=== PATIENT | female | born 1995 | race Caucasian/White ===

== ENCOUNTER 2018-02-05 20:07 | Emergency (ER) | payer SELFPAY ==
[2018-02-05 20:56] LABS: Pregnancy Test - Urine (BHCG) POSITIVE (Negative)
[2018-02-05 20:57] LABS: Bilirubin Negative (Negative); Blood, Urine Negative (Negative); Clarity Cloudy (Clear); Glucose, Urine (Dipstick) Negative (Negative); Leukocyte Negative (Negative); Nitrite Negative (Negative); Pregu Control Background? CLEAR/WHITE (CLR/WHITE); Pregu Control Bar Appear? YES (CONTROL BAR); Protein, Urine (Dipstick) 30 mg/dL (Neg-Trace); Specific Gravity Greater than 1.035 (1.002-1.036); Urobilinogen 0.2 mg/dL (0.2-1.0)
[2018-02-05 20:58] LABS: Specific Gravity, Urine Greater than 1.035 (1.002-1.036)
[2018-02-05 21:02] LABS: Bacteria/HPF 1+ HPF (None Seen); RBC/HPF 0-3 HPF (0-3)
[2018-02-05 21:03] LABS: Other Casts/LPF 0-3 FINELY GRAN LPF (0-3 Hyaline)
[2018-02-05] MEDS ORDERED: Acetaminophen/Codeine 30-300mg Tablet ONE (21:42)
== END 2018-02-05 21:45 | disposition home or self-care (01) ==
LOC: SCSER 20:07
DX: O99.619 Diseases of the digestive system complicating pregnancy, unspecified trimester (principal); K04.4 Acute apical periodontitis of pulpal origin; K02.9 Dental caries, unspecified
CPT/HCPCS: 81003; 81015; 81025; 87086; 99284

== ENCOUNTER 2018-04-27 10:31 | Outpatient (CLI) | payer OTHER ==
--- NOTE | 2018-04-27 13:44 | ULT ---
OBSTETRIC SONOGRAM: HISTORY: Second-trimester gestation. evaluation. FINDINGS: Multiple transabdominal sonographic views of the gravid uterus show a single intrauterine gestation i n cephalic presentation. Cervix is closed and 4.3 cm. Amniotic fluid within normal limits. Grade 0 placenta is anterior without evidence of previa. No gross intracranial abnormalities. spine and kidneys are intact as visualized. Four-chamber heart shows motion at 146 b.p.m. Three-vessel co rd shows a normal insertion. Measurements are as follows: Biparietal diameter 19 weeks 3 days Head circumference 18 weeks 6 days Abdominal circumference 18 weeks 6 days Femur length 18 weeks 6 days Estimated date of delivery based on today's sonogram 09/21/2018. [place] 21st percentile. IMPRESSION: Single viable intrauterine gestation with estimated gestational age based on today's sonogram 19 week s 0 days. POS: VIVIAN
== END 2018-04-27 10:32 | disposition home or self-care (01) ==
LOC: BICULT 10:31
PROVIDERS: ATTEND Family Medicine
DX: Z34.92 Encounter for supervision of normal pregnancy, unspecified, second trimester (principal); Z3A.17 17 weeks gestation of pregnancy
CPT/HCPCS: 76805

== ENCOUNTER 2018-07-15 19:02 | Day surgery (SDC) | payer MEDICAID, OTHER ==
[2018-07-15 19:33] VITALS: BP 128/75; TEMP 98.4; BMI 29.8
--- NOTE | 2018-07-15 20:46 | PDOC.LDHP ---
Labor and Delivery H&P Chief complaint: contractions HPI: 23 y/o at 30w2d, patient of Aravind Vitale, presents with ctx every hour or two. Denies VB, LOF, or decreased FM. ROS neg for HEENT, cv, pulm, gi, gu, neuro, psych, skin, musculoskeletal or constitutional symptoms other than mentioned above. OB History Details: 4 prior term SVDs Current complications: none Past Medical History: None Current medications: pre- vitamins Previous surgical history: none Allergies/Adverse Reactions: Allergies Allergy/AdvReac Type Severity Reaction Status Date / Time No Known Drug Allergies Allergy Verified 02/01/14 17:40 Social history: none - Physical Exam Vital signs reviewed and normal: yes General: NAD, resting Lungs: nonlabored breathing Abdomen: gravid Extremeties: no edema FHT: category 1 (150s, mod variability, + accels, no decels) Dougherty contractions every: none - Vaginal Exam cm dilated: 0 Effacement: 0% Station: -3 - Assessment 23 y/o at 30w2d with no e/o PTL. status reassuring with reactive NST. - Plan -: D/c home with precautions. Advised to keep all appointments.
== END 2018-07-15 20:08 | disposition home or self-care (01) ==
LOC: L&D/OP 19:02
PROVIDERS: ATTEND Family Medicine
DX: O47.03 False labor before 37 completed weeks of gestation, third trimester (principal); Z3A.30 30 weeks gestation of pregnancy
CPT/HCPCS: 99282

== ENCOUNTER 2018-08-29 10:20 | Day surgery (SDC) | payer OTHER ==
[2018-08-29 10:47] VITALS: BMI 32.1
--- NOTE | 2018-08-29 12:31 | PDOC.LDHP ---
Labor and Delivery H&P Chief complaint: decreased movement HPI: 23 yo SVDs in past at 36 weeks 5 days. Patient of Cesar Huerta, here for decresaed FM...no VB, no CTX Current gestational age (weeks): 36 (5 days) Dating criteria: last menstrual period Grav: 5 Para: 4 Current complications: none Abnormal US findings: No Current medications: pre-tiny vitamins Previous surgical history: none Allergies/Adverse Reactions: Allergies Allergy/AdvReac Type Severity Reaction Status Date / Time No Known Drug Allergies Allergy Verified 02/01/14 17:40 - Physical Exam Vital signs reviewed and normal: yes General: NAD Heart: RRR Lungs: CTAB Abdomen: gravid Extremeties: no edema FHT: category 1 [place] contractions every: none - Assessment Late gestation, close to 37 weeks...decreased FM, not better. NST reactive and BPP 10/04. - Plan Plan: observation in L&D (Antrepartum survellance is reassuring. OK for outpatient care)
--- NOTE | 2018-08-29 14:00 | ULT ---
BIOPHYSICAL PROFILE: 08/29/18 HISTORY: Decreased movement. FINDINGS/IMPRESSION: tone: 2 breathin movement: 2 Amniotic fluid: 2 Total score: 8/8. Placenta: Anterior. Position: Vertex. heart rate: 123 beats per minute. LAINA recorded at 12.1 cm. POS: OFF
== END 2018-08-29 13:04 | disposition home or self-care (01) ==
LOC: L&D/OP 10:20
PROVIDERS: ATTEND Family Medicine
DX: O36.8130 Decreased fetal movements, third trimester, not applicable or unspecified (principal); Z3A.36 36 weeks gestation of pregnancy
CPT/HCPCS: 76819; 99282

== ENCOUNTER 2018-09-13 05:30 | Inpatient (IN) | payer OTHER ==
--- NOTE | 2018-09-13 07:39 | HP ---
HISTORY OF PRESENT ILLNESS: This is a 23-year-old white female, G5, P4 at 39 weeks' gestation with an EDC of 09/20, being admitted for elective induction. course has been uncomplicated. Having occasional contractions. PAST MEDICAL HISTORY: Unremarkable. ALLERGIES: NONE. PAST SURGICAL HISTORY: Spontaneous vaginal delivery x4. FAMILY HISTORY: Mother with diabetes. Paternal grandmother with lung cancer. SOCIAL HISTORY: Does not smoke. Does not drink. She is . She has 4 kids at home. REVIEW OF SYSTEMS: As above. PHYSICAL EXAMINATION: VITAL SIGNS: Stable, afebrile. HEART/LUNGS: Clear. ABDOMEN: Soft, gravid. Last cervical exam 2 cm dilated. LABORATORY DATA: Hematocrit 34.9. 1-hour GTT 70. Pap normal. GC and chlamydia negative. Drug screen negative. Thyroid normal. HIV negative. Hepatitis B negative. RPR negative. Urine culture negative. Rubella immune. O positive blood type. GBS pending. ASSESSMENT: 1. Term intrauterine . 2. G5, P4. PLAN: 1. Routine L and D orders. 2. Routine anesthesia orders. 3. Pitocin induction. Job ID: [id number]
[2018-09-13] MEDS: Lactated Ringer's 1,000 ML IV SCH ×3 (08:15→14:33)
[2018-09-13] MEDS ORDERED: HYDROcodone/Acetaminophen 5/325 mg Tablet PO PRN (08:34)
[2018-09-13] MEDS ORDERED: Misoprostol 200 MCG TAB PR PRN (08:34)
[2018-09-13] MEDS ORDERED: Methylergonovine 0.2 MG/ML VIAL IM PRN (08:34)
[2018-09-13] MEDS ORDERED: NS w/ Oxytocin 10 units 500 ML IV SCH (08:34)
[2018-09-13] MEDS ORDERED: Acetaminophen 500 MG TAB PO PRN (08:34)
[2018-09-13] MEDS ORDERED: Ibuprofen 800 MG TAB PO PRN (08:34)
[2018-09-13] MEDS ORDERED: Butorphanol Tartrate 1 MG/ML VIAL SLOW IVP PRN (08:34)
[2018-09-13] MEDS ORDERED: NS / Oxytocin 40 units/1000ml 1,000 ML IV PRN (08:34)
[2018-09-13] MEDS ORDERED: Ondansetron PF 4 MG/2 ML Vial IVP PRN ×2 (08:34→09:53)
[2018-09-13] MEDS ORDERED: Lidocaine 1% (PF) 30 ML VIAL SC PRN (08:34)
[2018-09-13] MEDS ORDERED: Promethazine HCl 25 MG/ML VIAL IM PRN (08:34)
[2018-09-13] MEDS ORDERED: hydrALAZINE 20 MG/ML VIAL SLOW IVP PRN ×2 (08:34→17:37)
[2018-09-13] MEDS ORDERED: NS w/ Oxytocin 10 units 500 ML ONE (08:35)
[2018-09-13 08:50] VITALS: BMI 32.5
[2018-09-13 09:07] LABS: Hemoglobin 12.5 g/dL (12.0-16.0); Mean Corpuscular HGB CONC 33.7 g/dL (32.0-36.0); Mean Corpuscular Hemoglobin 31.1 pg (27.0-31.0); Mean Corpuscular Volume 92.2 fL (78.0-98.0); Mean Platelet Volume 9.6 fL (7.4-10.4); Platelet Count 224 thou/uL (130-400); RBC Distribution Width 12.3 % (11.5-14.5); Red Blood Cell (RBC) Count 4.03 mill/uL (4.20-5.40); White Blood Cell (WBC) Count 15.4 thou/uL (4.8-10.8)
[2018-09-13] MEDS ORDERED: Fentanyl 4 mcg/Bup 0.1% Cadd 0 ML ONE (09:21)
[2018-09-13] MEDS ORDERED: Fentanyl 4 mcg/Bup 0.1% Cadd 100 ML ONE (09:21)
[2018-09-13 09:37] LABS: HBSAg Index 0.27 S/CO (0-0.99); Hep B Surf Ag Non-Reactive S/CO (NonReactive); Syphilis Antibody Nonreactive (Nonreactive); Syphilis Antibody Index 0.05 S/CO (<1.00 Non-Reactive)
[2018-09-13] MEDS ORDERED: ePHEDrine/0.9% NaCl/PF SYRINGE 50 mg/10 ml SLOW IVP PRN (09:53)
[2018-09-13] MEDS ORDERED: Lactated Ringer's 500 ML IV PRN (09:53)
[2018-09-13] MEDS ORDERED: Naloxone HCl 0.4 mg/ml Vial IVP PRN ×2 (09:53)
[2018-09-13] MEDS ORDERED: Fentanyl 4 mcg/Bupivacaine 0.1% Cassette 100 ML EPIDURAL SCH (10:00)
[2018-09-13] MEDS ORDERED: Communication Order-Pharmacy FS SCH (10:00)
[2018-09-13] MEDS ORDERED: Bupivacaine/Epinephrine 0.25% 30 ML VIAL ONE (11:11)
[2018-09-13] MEDS ORDERED: NS / Oxytocin 40 units/1000ml 1,000 ML ONE (13:48)
[2018-09-13] MEDS ORDERED: Bisacodyl 10 MG SUPP PR PRN (17:37)
[2018-09-13] MEDS ORDERED: Adacel (T-DAP) 0.5 ML SYRINGE IM ONE (17:37)
[2018-09-13] MEDS ORDERED: NS / Oxytocin 40 units/1000ml 1,000 ML IV SCH (17:37)
[2018-09-13] MEDS ORDERED: Milk Of Magnesia 30 ML UDCUP PO PRN (17:37)
[2018-09-13] MEDS ORDERED: Calcium Carbonate 500 MG ChewTAB PO PRN (17:43)
[2018-09-13] MEDS: Docusate Calcium (SURFAK) 240 MG CAP PO SCH (22:34)
[2018-09-13] MEDS: Ibuprofen 800 MG TAB PO PRN (22:34)
[2018-09-13] MEDS: HYDROcodone/Acetaminophen 7.5/325 mg Tablet PO PRN (22:36)
[2018-09-14] MEDS: Ferrous Sulfate 325 MG TAB PO SCH ×3 (00:38→18:13)
[2018-09-14 06:17] LABS: Hemoglobin 10.5 g/dL (12.0-16.0)
--- NOTE | 2018-09-14 07:53 | PDOC.PP ---
Post Progress Note Post Day #: 1 Subjective: Pt reports doing well this morning. States overnight had some back pain and swelling in the sight of the epidural. Says she took one norco and it helped. Reports some burning when she peed. Says it is better this morning. States lochia is lightening up. Up and moving around. Tolerating PO. PO intake tolerated: yes Flatus: yes Ambulation: yes Vital Signs (12 hours) Temp Pulse Resp BP Pulse Ox 09/14/18 05:15 98.0 F 76 18 120/70 09/14/18 00:00 99.0 F 77 18 95/60 09/13/18 21:25 98.8 F 100 18 119/65 09/13/18 20:00 98.2 F 78 18 125/61 98 Weight Weight 91.626 kg - Physical Examination General: NAD Cardiovascular: no m/r/g, RRR Respiratory: clear to auscultation bilaterally, non-labored breathing Abdominal: + bowel sounds, lochia (Reports as light), no distention, appropriately TTP Fundus firm & at: umbilicus Extremities: negative homans (B) Neurological: no gross focal deficits Psychiatric: A&Ox3, normal affect Result Diagrams: 09/14/18 06:01 Additional Labs: Post Labs Blood Type O POSITIVE 09/13/18 08:48 Hep Bs Antigen Non-Reactive S/CO (NonReactive) 09/13/18 08:48 (1) Term delivered Code(s): O80 - ENCOUNTER FOR FULL-TERM UNCOMPLICATED DELIVERY Status: Acute - Assessment/Plan 23 yo ->5 delivered PATTI Boswell via on 09/13/18 @ 17:11. Term Delivered -Routine Post care -Having some pain in epidural sight. Controlled with current pain regimen. Will adjust as needed. -Pt up and moving around and doing well. -Pt GBS unknown but low risk. Plan to D/C home later tonight pending baby bilirubin check.
--- NOTE | 2018-09-14 08:14 | DN ---
DATE OF PROCEDURE: 09/13/2018 DELIVERING PHYSICIAN: Diallo Camp MD PGY-3, Aravind Vitale MD PROCEDURES: Spontaneous vaginal delivery. ANESTHESIA: Epidural. ESTIMATED BLOOD LOSS: 50 mL. PREOPERATIVE DIAGNOSIS: Term intrauterine in labor. POSTOPERATIVE DIAGNOSIS: Term intrauterine , delivered. INDICATIONS: A 23-year-old, G5, P4, presents to L and D for induction of labor. DELIVERY NOTE: This is a 23-year-old female, G5, P4-0-0-4 at 39 weeks, who delivered a viable female at 1711 following an uneventful antepartum course, a vigorous female was delivered over an intact perineum in the occipito- posterior position. Anterior shoulder and remainder of the body delivered. No nuchal cord. Head was held down. The mouth and nares were bulb suctioned. Cord clamped and cut. Cord blood collected. Placenta delivered intact with three-vessel cord noted. Fundal massage was performed. The fundus was firm. The cervix and vagina were inspected, and there was found to be a few little skin ball that did not need repair. They were hemostatic at this time. went to nursery in good condition for routine care. Apgars were 9 and 9 at one and five minutes respectively. The patient tolerated delivery well and went to after routine recovery/care. Job ID: [id number] [facility]
[2018-09-14] MEDS: Docusate Calcium (SURFAK) 240 MG CAP PO SCH (08:39)
[2018-09-14] MEDS: HYDROcodone/Acetaminophen 7.5/325 mg Tablet PO PRN (11:42)
[2018-09-14] MEDS: Ibuprofen 800 MG TAB PO PRN (13:37)
[2018-09-15 07:57] VITALS: BP 109/61; TEMP 98.5
--- NOTE | 2018-09-15 08:09 | PDOC.PP ---
Post Progress Note Post Day #: 2 Subjective: Pt reports still having pain in back at sight of epidural. Denies any headaches , dizziness or lightheadness. Says she has never had pain like this before. Denies any fever or chills. denies any n/v/d/c. Reports tolerating PO. Denies any chest pain or SOB. Reports lochia as light. PO intake tolerated: yes Flatus: yes Ambulation: yes Vital Signs (12 hours) Temp Pulse Resp BP BP Pulse Ox 09/15/18 07:54 98.5 F 76 18 109/61 97 09/14/18 20:25 98.2 F 91 18 119/57 L 98 Weight Weight 91.626 kg - Physical Examination General: NAD Cardiovascular: no m/r/g, RRR Respiratory: clear to auscultation bilaterally, non-labored breathing Abdominal: + bowel sounds, lochia (Reports as light), no distention, appropriately TTP Fundus firm & at: below umbilicus Extremities: negative homans (B) Neurological: no gross focal deficits Psychiatric: A&Ox3, normal affect Result Diagrams: 09/14/18 06:01 Additional Labs: Post Labs Blood Type O POSITIVE 09/13/18 08:48 Hep Bs Antigen Non-Reactive S/CO (NonReactive) 09/13/18 08:48 (1) Term delivered Code(s): O80 - ENCOUNTER FOR FULL-TERM UNCOMPLICATED DELIVERY Status: Acute - Assessment/Plan 23 yo ->5 delivered PATTI Boswell via on 09/13/18 @ 17:11. Term Delivered -Routine Post care -Having some pain in epidural sight. Adjusted pain regimen to anjana tylenol and ibuprofen. Advised to continue outpatient. [place] for breakthrough pain. -Hgb down to 10.5 yesterday from 12.5. Denies any headaches or lightheadness. -Pt up and moving around and doing well. -Pt GBS unknown but low risk. -Pt ready for D/C.
[2018-09-15] MEDS: Ferrous Sulfate 325 MG TAB PO SCH (08:53)
[2018-09-15] MEDS: Docusate Calcium (SURFAK) 240 MG CAP PO SCH (08:57)
[2018-09-15] MEDS: HYDROcodone/Acetaminophen 7.5/325 mg Tablet PO PRN (09:01)
[2018-09-15] MEDS ORDERED: Acetaminophen 500 MG TAB PO SCH (12:00)
[2018-09-15] MEDS ORDERED: Ibuprofen 800 MG TAB PO SCH (14:00)
== END 2018-09-15 11:30 | disposition home or self-care (01) | DRG 807 ==
LOC: L&D 07:42 → 3SW 19:53
PROVIDERS: ADMIT Family Medicine; ATTEND Family Medicine
PROC: 10E0XZZ Delivery of Products of Conception, External Approach (ICD-10-PCS; principal; 2018-09-14)
PROC: 3E033VJ Introduction of Other Hormone into Peripheral Vein, Percutaneous Approach (ICD-10-PCS; 2018-09-14)
DX: O80 Encounter for full-term uncomplicated delivery (principal); Z37.0 Single live birth; Z3A.39 39 weeks gestation of pregnancy
CPT/HCPCS: 36415; 51702; 85014; 85018; 85027; 86780; 86850; 86900; 86901; 87340; 90715; J2590

== ENCOUNTER 2019-03-19 09:09 | Emergency (ER) | payer OTHER, SELFPAY ==
[2019-03-19] MEDS ORDERED: Ketorolac Tromethamine 30 MG/ML VIAL ONE (10:09)
[2019-03-19] MEDS ORDERED: Morphine 4 MG/ML VIAL ONE (10:09)
[2019-03-19 10:18] LABS: #Basophils 0.1 thou/uL (0.0-0.2); #Eosinphils 0.1 thou/uL (0.0-0.7); #Lymphocytes 1.4 thou/uL (1.20-3.40); #Monocytes 0.4 thou/uL (0.11-0.59); %Basophils 1.5 % (0.0-1.0); %Lymphocytes 20.7 % (21.0-51.0); %Monocytes 5.5 % (0.0-10.0); %Neutrophils 71.2 % (42.0-75.0); Hemoglobin 13.9 g/dL (12.0-16.0); Mean Corpuscular HGB CONC 34.5 g/dL (32.0-36.0); Mean Corpuscular Hemoglobin 31.9 pg (27.0-31.0); Mean Corpuscular Volume 92.2 fL (78.0-98.0); Mean Platelet Volume 8.3 fL (7.4-10.4); Platelet Count 201 thou/uL (130-400); RBC Distribution Width 12.5 % (11.5-14.5); Red Blood Cell (RBC) Count 4.37 mill/uL (4.20-5.40)
[2019-03-19 10:29] LABS: BHCG - Serum Negative (NEGATIVE); Pregs Control Background? CLEAR/WHITE (CLR/WHITE); Pregs Control Bar Appear? YES (CONTROL BAR)
[2019-03-19 10:35] LABS: ALT (SGPT) 12 U/L (8-55); AST (SGOT) 15 U/L (5-34); Albumin 4.6 g/dL (3.5-5.0); Alkaline Phosphatase 42 U/L (40-110); Anion Gap 13 mmol/L (10-20); BUN (Urea Nitrogen) 6 mg/dL (7.0-18.7); Bilirubin, Total 0.3 mg/dL (0.2-1.2); Calc. Creatinine Clearance 0 mL/min (70-130); Calcium 9.2 mg/dL (7.8-10.44); Carbon Dioxide 25 mmol/L (22-29); Chloride 106 mmol/L (98-107); Estimated GFR-MDRD 86; Globulin 3.2 g/dL (2.4-3.5); Glucose 96 mg/dL (70-105); Lipase 6 U/L (8-78); Potassium 3.6 mmol/L (3.5-5.1); Protein, Total 7.8 g/dL (6.0-8.3); Sodium 140 mmol/L (136-145)
--- NOTE | 2019-03-19 12:18 | ULT ---
EXAM: Pelvic ultrasound HISTORY: IUD placement; pelvic pain COMPARISON: None TECHNIQUE: Multiple grayscale and color Doppler images were obtained in a pelvic ultrasound. Spectral analysis of the Doppler waveforms of the ovaries were performed. FINDINGS: CERVIX: No evidence of nabothian cysts. UTERUS: Normal in size without focal abnormality. Retroverted in appearance. ENDOMETRIAL STRIPE: 10 mm. There is an IUD in the uterus. A small amount of free fluid is seen in the pelvis. RIGHT OVARY: Normal flow without focal mass. LEFT OVARY: Normal flow without focal mass. IMPRESSION: 1. No significant pelvic abnormality 2. IUD in the uterus.
[2019-03-19] MEDS ORDERED: Acetaminophen 325 MG TAB ONE (12:41)
[2019-03-19 12:57] LABS: Bacteria/HPF None Seen HPF (None Seen); Bilirubin Negative (Negative); Blood, Urine 2+ (Negative); Clarity Clear (Clear); Glucose, Urine (Dipstick) Normal (Negative); Leukocyte Negative Leu/uL (Negative); Nitrite Negative (Negative); Protein, Urine (Dipstick) 30 mg/dL (Neg-Trace); RBC/HPF 21-50 HPF (0-3); Squamous Epithelial 0-3 HPF (0-3); Urobilinogen Normal mg/dL (Less than 2); WBC/HPF 0-3 HPF (0-3)
== END 2019-03-19 13:35 | disposition home or self-care (01) ==
LOC: ERS 09:09
DX: N94.6 Dysmenorrhea, unspecified (principal); F17.210 Nicotine dependence, cigarettes, uncomplicated
CPT/HCPCS: 76856; 80053; 81003; 81015; 83690; 84703; 85025; 96361; 96374; 96375; J1885; J2270